=== PATIENT | female | born 1965 | race Caucasian/White ===

== ENCOUNTER 2018-06-18 13:51 | Outpatient (CLI) | payer OTHER ==
[~2018-06-18 13:51] MED LIST: SEROQUEL50 MG
== END 2018-06-18 13:52 | disposition home or self-care (01) ==
LOC: MAMO-SONO 13:51
DX: N63.10 Unspecified lump in the right breast, unspecified quadrant (principal); N63.20 Unspecified lump in the left breast, unspecified quadrant; Z12.31 Encounter for screening mammogram for malignant neoplasm of breast